=== PATIENT | female | born 1960 | race African-American/Black ===

== ENCOUNTER 2020-04-27 10:06 | Emergency (ER) | payer SELFPAY ==
[~2020-04-27] VITALS: Ht 170.2 cm; Wt 86.0 kg
[2020-04-27 10:06] VITALS: BP 161/113
[2020-04-27] MEDS ORDERED: TETRACAINE 0.5% OPHTH SOLUTION 4ML BOTTLE. OD ONE (10:30)
[2020-04-27] MEDS ORDERED: FLUORESCEIN OPHTH TEST STRIP. OD ONE (10:30)
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
[2020-04-27] MEDS ORDERED: oxyCODONE/APAP 5/325 1 TAB TABLET PO ONE (12:15)
[2020-04-27] MEDS ORDERED: POLYMYXIN/TRIMETHOPRIM OPHTH SOLUTION 10ML BOTTLE. OD ONE (12:30)
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
[2020-04-27] MEDS ORDERED: DIPH,PERTUSS(ACELL),TET VAC/PF 0.5 ML SYRINGE. VAX IM ONE (12:45)
== END 2020-04-27 13:37 | disposition home or self-care (01) ==
LOC: ER 10:06
DX: S05.32XA Ocular laceration without prolapse or loss of intraocular tissue, left eye, initial encounter (principal); F17.200 Nicotine dependence, unspecified, uncomplicated; W22.8XXA Striking against or struck by other objects, initial encounter; Y93.89 Activity, other specified; Y92.89 Other specified places as the place of occurrence of the external cause; Y99.8 Other external cause status
CPT/HCPCS: 70480; 90471; 90715; 99284